=== PATIENT | female | born 1985 | race African-American/Black ===

== ENCOUNTER 2021-02-22 16:54 | Outpatient (CLI) | payer MEDICAID, SELFPAY ==
--- NOTE | ~2021-02-22 | US_ITS ---
EXAMINATION: US OB limited DATE: 02/22/2021 18:30 INDICATION: Patient with second trimester dichorionic, diamniotic and recent demise o f one twin presents with abnormal discharge TECHNIQUE: Real-time ultrasound of the pelvis was performed. The interpreting radiologist was not pre sent for the study. COMPARISON: None. FINDINGS: There is a dichorionic, diamniotic twin . As noted in the clinical history, demise of one twin. The surviving twin is in transverse lie. The placenta is posterior. cardiac activity and movement are noted in the surviving fetus. heart rate is 147 beats per dawit te (bpm). The amniotic fluid index is subjectively normal. The cervical length is 3.4 cm. No definite cervical funneling is identified. There are nabothian cysts of the cervix. There is debris in the am niotic sac of the twin. IMPRESSION: 1. Dichorionic, diamniotic with demise of one twin and surviving twin in transverse l ie. No definite cause for discharge identified. Reviewed, dictated and finalized at location A. OPRACTIC TEACHER IMPRESSION: 1. Dichorionic, diamniotic with demise of one twin and survivin g twin in transverse lie. No definite cause for discharge identified.
[2021-02-22 17:25] VITALS: BP 113/62; PULSE 88
[2021-02-22 17:49] LABS: Basophils Percent Auto 0.1 % (0.2-1.2); Eosinophils Percent Auto 0.1 % (0-4.4); Hematocrit 23.9 % (37.0-47.0); Hemoglobin 7.9 g/dL (12.0-15.0); Immature Granulocyte Absolute 0.03 K/mm3 (0.00-0.031); Immature Granulocyte Percent A 0.4 % (0-0.5); Lymphocytes Absolute Auto 1.49 K/mm3 (0.9-3.2); Lymphocytes Percent Auto 21.9 % (18.3-44.2); Mean Corpuscular HGB Conc 33.1 g/dl (32-36); Mean Corpuscular Hemoglobin 28.3 pg (26-34); Mean Corpuscular Volume 85.7 fl (80-100); Mean Platelet Volume 9.2 fl (7.4-10.4); Monocytes Absolute Auto 0.7 K/mm3 (0.1-0.6); Monocytes Percent Auto 9.9 % (2.6-8.5); Neutrophils Absolute Auto 4.6 K/mm3 (1.3-6.7); Neutrophils Percent Auto 67.6 % (45.5-73.1); Platelet Count Result 241 k/mm3 (150-375); Red Blood Count 2.79 M/mm3 (4.2-5.4); Red Cell Distribution Width 13.8 % (11.5-14.5); White Blood Count 6.8 K/mm3 (4.5-10.0)
[2021-02-22 18:04] LABS: INR 1.1; Prothrombin Time 13.8 Seconds (11.1-14.7)
[2021-02-22 18:05] LABS: Partial Thromboplastin Time 28.3 SECONDS (22.3-36.8)
[2021-02-22 18:11] LABS: Fibrinogen 279 mg/dl (215-510)
== END 2021-02-22 19:35 | disposition home or self-care (01) ==
LOC: ANHOBOP 17:04 → ANHOBPP 17:09
PROVIDERS: Obstetrics & Gynecology; Visit Provider Obstetrics & Gynecology
DX: O42.90 Premature rupture of membranes, unspecified as to length of time between rupture and onset of labor, unspecified weeks of gestation (principal); Z3A.00 Weeks of gestation of pregnancy not specified
CPT/HCPCS: 36415; 76815; 84112; 85025; 85384; 85610; 85730; 99199

== ENCOUNTER 2021-02-23 21:51 | Observation (INO) | payer MEDICAID, SELFPAY ==
[2021-02-23 22:23] VITALS: BP 115/64; PULSE 86
[2021-02-23 22:30] VITALS: BMI 32.0
[2021-02-23] MEDS: LACTATED RINGERS 1,000 ML 500 ML (22:30)
[2021-02-23 22:31] VITALS: BP 108/64; PULSE 81
[2021-02-23 22:53] LABS: Hematocrit 26.4 % (37.0-47.0); Hemoglobin 8.8 g/dL (12.0-15.0); Mean Corpuscular HGB Conc 33.3 g/dl (32-36); Mean Corpuscular Hemoglobin 28.7 pg (26-34); Mean Platelet Volume 9.3 fl (7.4-10.4); Platelet Count Result 244 k/mm3 (150-375); Red Blood Count 3.07 M/mm3 (4.2-5.4); Red Cell Distribution Width 13.7 % (11.5-14.5); White Blood Count 7.6 K/mm3 (4.5-10.0)
[2021-02-23 23:06] LABS: INR 1.1; Prothrombin Time 13.6 Seconds (11.1-14.7)
[2021-02-23 23:07] LABS: Partial Thromboplastin Time 32.1 SECONDS (22.3-36.8)
[2021-02-23 23:18] LABS: Fibrinogen 360 mg/dl (215-510)
[2021-02-23 23:38] VITALS: BP 114/64; PULSE 84
[2021-02-23 23:46] VITALS: BP 111/82; PULSE 73
--- NOTE | 2021-02-23 23:56 | PM.IMHP ---
H&P: HPI History of Present Illness Date/Time: 02/23/21 23:56 Vaishnavi is a 35yo @ 21.3wks with di-di twins (demise of twin A on 01/31/21) who presented to L&D with cramping pain, significant vaginal pressure, and bleeding since 183. On speculum exam, she was found to be 4cm dilated with bulging membranes. She then had rupture of membranes with dark color fluid noted. Shortly after, a forebag was palpated and she was completely dilated. Bedside US confirmed that twin A was the presenting twin; twin b was active, with normal heartbeat and subjectively normal fluid. She denies any fevers, nausea, vomiting, BANUELOS, vision changes, CP, SOB, palpitations. Twin B is active. She has seen MFM at [facility]. Her has been complicated by: - AMA - Di-di twin - Twin A with multiple anomlies and subsequent demise noted on MFM US on 01/31/21 - Lupus with h/o lupus nephritis - Connective tissue disorder Chief Complaint: pain, bleeding Review of Systems Review of Systems: All systems reviewed & are unremarkable except as noted in HPI and below (HPI) Meds Home Medications and Allergies Home Medications Medication Instructions Recorded Confirmed Type PNV cmb#95-ferrous fumarate-FA 1 tablet PO DAILY 02/22/21 02/22/21 History [] aspirin [Baby Aspirin] 81 mg PO DAILY 02/22/21 02/22/21 History ferrous sulfate [Iron (ferrous 325 mg PO DAILY 02/22/21 02/22/21 History sulfate)] hydroxychloroquine 1 mg PO DAILY 02/22/21 02/22/21 History metronidazole [Metrogel Vaginal] 1 appful VAGINAL DAILY 5 Days #5 g 02/22/21 Rx Allergies Allergy/AdvReac Type Severity Reaction Status Date / Time No Known Allergies Allergy Unknown Unverified 09/07/08 10:17 Vital Signs Vital Signs - 24 hr 02/23/21 22:23 02/23/21 22:31 02/23/21 23:38 Pulse Rate 86 81 84 Blood Pressure 115/64 108/64 114/64 02/23/21 23:46 Pulse Rate 73 Blood Pressure 111/82 Exam Const: General: cooperative, healthy appearing, comfortable and no acute distress Resp: Effort & Inspection: normal respiratory effort Cardio: Rate: regular rate GI: Inspection: normal to inspection and non-distended GI Palp: No abdominal tenderness and Yes Soft to palpation : Other: Twin A w/ + FHT's in 150's fundus soft; non-tender Cervix: speculum, 4cm; dark fluid noted digital exam: bulging bag; completely dilated Skin: General skin exam: normal color Neuro: General: patient oriented x3 Extrem: General: normal to inspection Psych: Appearance: grossly normal Affect: normal affect Attitude: cooperative H&P: Results Labs Labs: Short CBC 02/23/21 Range/Units 22:46 WBC 7.6 (4.5-10.0) K/mm3 Hgb 8.8 L (12.0-15.0) g/dL Hct 26.4 L (37.0-47.0) % Plt Count 244 (150-375) k/mm3 Assessment and Plan Assessment and plan (1) Dichorionic diamniotic twin : Qualifiers: Trimester: second trimester Qualified Code(s): O30.042 - Twin , dichorionic/diamniotic, second trimester Code(s): O30.049 - Twin , dichorionic/diamniotic, unspecified trimester Status: Acute (2) IUFD at less than 20 weeks of gestation: Code(s): O02.1 - Missed Status: Acute Additional Plan - Admitted to L&D [facility] territory sales consultant doctor was contacted; due to imminent delivery plan for delivery at [place] - No signs of infection; afebrile, normotensive, normal heart rate; non-tender abdomen, normal WBC - Plan for spontaneous delivery of ; no augmentation, betamethasone, or magnesium indicated - Plan for transfer to [facility] once deemed clinically stable; likely for inpatient admission until delivery of twin B
--- NOTE | 2021-02-24 | WPDHPUPDATE1 ---
History and Physical Update Update Date/Time: 02/24/21 23:57 History and Physical has been reviewed, including an updated exam of the patient. There are NO changes in the patient's condition. Risks, benefits, and alternatives have been discussed and questions answered. Patient agrees to proceed with procedure.
[2021-02-24 00:01] VITALS: BP 111/61; PULSE 77
[2021-02-24 00:16] VITALS: BP 110/59; PULSE 76
--- NOTE | 2021-02-24 00:17 | PM.OBPRVD ---
OB - Delivery Note Procedure Delivery date: 02/23/21 Intrapartal events: Other (di-di twin ; demise of twin A; labor) Laceration Description: None Quantitative Blood Loss (ml): 100 Anesthesia type: None Disposition: other (monitor on L&D until transferred to [place]) [place] Baby Date of : 02/23/21 Time of : 23:29 Weeks of gestation at delivery: 21 Infant gender: Female presentation: vertex score one minute: 0 score five minutes: 0 Narrative: Vaishnavi was found to be completely dilated and continued to have strong cramps. She pushed twice and delivered the en caul. She immediately felt better and denied any pain. Minimal bleeding was noted. The cervix was found to have decreased to 2cm dilated. She passed 1 small clot that appeared to have placenta tissue, however, no obvious placental tissue was delivered. Due to the very short cord noted on ultrasound no umbilical cord was palpated. The delivered, demised infant was examined and the liver and bowel were noted to be outside of the amniotic sac. There were also multiple skeletal defects. Twin B heart tones were monitored during this process and were within normal limits. Vaishnavi and her desired to hold the infant after the patient was cleaned. Sponge, lap, and instrument counts were correct at the end the procedure.
[2021-02-24 00:32] VITALS: BP 106/60; PULSE 80
[2021-02-24 00:46] VITALS: BP 116/65; PULSE 87
[2021-02-24 01:01] VITALS: BP 118/67; PULSE 80
[2021-02-24 01:16] VITALS: BP 106/90; PULSE 124
[2021-02-24 10:10] LABS: Rapid Plasma Reagin Non-Reactive (NonReactive)
--- NOTE | 2021-03-02 13:56 | PM.TDS ---
Transfer Discharge Sum: Prov Provider Date of admission: 02/23/21 21:51 Primary care physician: Jamilah Gaytan, DELIVERY SALES WORKER Admitting clinician: Lynn Hernandez MD Attending physician on admission: Lynn Hernandez Consults: Matthew/Laith [facility] maternal transport team Attending physician on discharge: Lynn Hernandez Discharging clinician: Lynn Hernandez Anticipated date of transfer: 02/24/21 Receiving physician/facility: La[facility] DS: Admitting Diagnosis Discharge Date 02/24/21 Admitting Diagnosis labor di-di twin demies of twin A DS: Discharge Diagnosis Discharge Diagnosis (1) IUFD at less than 20 weeks of gestation: Code(s): O02.1 - Missed Status: Acute (2) Dichorionic diamniotic twin : Qualifiers: Trimester: second trimester Qualified Code(s): O30.042 - Twin , dichorionic/diamniotic, second trimester Code(s): O30.049 - Twin , dichorionic/diamniotic, unspecified trimester Status: Acute (3) Vaginal delivery: Code(s): O80 - Encounter for full-term uncomplicated delivery Status: Acute Transfer Discharge Sum: Med Medications Active and Home Medications: Home Medications PNV cmb#95-ferrous fumarate-FA [] 1 tablet PO DAILY 02/22/21 [History Confirmed 02/22/21] aspirin 81 mg PO DAILY 02/22/21 [History Confirmed 02/22/21] ferrous sulfate [Iron (ferrous sulfate)] 325 mg PO DAILY 02/22/21 [History Confirmed 02/22/21] hydroxychloroquine 1 mg PO DAILY 02/22/21 [History Confirmed 02/22/21] metronidazole [Metrogel Vaginal] 1 appful VAGINAL DAILY 5 Days #5 g 02/22/21 [Rx] Transfer Discharge Sum: Hosp Hospital Course Hospital course: Vaishnavi Salazar is a 35 year old @ 21.3wks with di-di twins (demise of twin A on 01/31/21) who presented to L&D with cramping pain, significant vaginal pressure, and bleeding since 1829. On speculum exam, she was found to be 4cm dilated with bulging membranes. She then had rupture of membranes with dark color fluid noted. Shortly after, a forebag was palpated and she was completely dilated. Bedside US confirmed that twin A was the presenting twin; twin b was active, with normal heartbeat and subjectively normal fluid. She denied any fevers, nausea, vomiting, BANUELOS, vision changes, CP, SOB, palpitations. She has seen MFM at [facility], therefore the MFM parking control officer was contacted who stated that antibiotics, magnesium and steroids were not indicated due to prematurity. They desired her to deliver twin A, then be transported for [facility] for inpatient stay if Twin B survived/did not deliver. She subsequently delivered Twin A without issues (multiple anomalies were noted). Minimal bleeding. Twin B was noted to have normal heart tones and cervix decreased to 2cm. MFM maternal transport team at [facility] was once again contacted and desired to have patient transferred to [facility] for inpatient monitoring/care. Time Spent with Patient Time attestation: Total time spent providing and/or coordinating transfer services: Exam Const: General: cooperative, healthy appearing, comfortable and no acute distress Resp: Effort & Inspection: normal respiratory effort Cardio: Rate: regular rate GI: GI Palp: No abdominal tenderness and Yes Soft to palpation : Other: Twin B: normal heart tones TOCO: no contractions Cervix: 2cm/thick/high No vaginal bleeding or leakage of fluid Skin: General skin exam: normal color Neuro: General: patient oriented x3 Extrem: General: normal to inspection Psych: Appearance: grossly normal Affect: normal affect Attitude: cooperative DS: Data Data Completed and Pending Completed studies during hospitalization: Pending at discharge 02/24/21 02:44 Surgical [PTH] Routine
== END 2021-02-24 01:41 | disposition short-term general hospital (02) ==
PROVIDERS: Admitting Provider Obstetrics & Gynecology; PCP Nurse Practitioner Family; Visit Provider Obstetrics & Gynecology
DX: O02.1 Missed abortion (principal); O30.042 Twin pregnancy, dichorionic/diamniotic, second trimester; Z3A.21 21 weeks gestation of pregnancy; M32.9 Systemic lupus erythematosus, unspecified; M35.9 Systemic involvement of connective tissue, unspecified
CPT/HCPCS: 59821; 36415; 85027; 85384; 85610; 85730; 86592; 86850; 86900; 86901; 88305; 88307; G0378; G0379; J7120

== ENCOUNTER 2024-07-19 15:23 | Outpatient (CLI) | payer OTHER, SELFPAY ==
--- NOTE | ~2024-07-19 | MM_ITS ---
EXAMINATION: MM screening imelda BI w cesario HISTORY: Screening TECHNIQUE: Craniocaudal and mediolateral oblique 3-D tomosynthesis images were obtained and synthetic 2-D images were generated. CAD analysis was submitted and interpreted. COMPARISON: No prior mammogram is available for comparison at this institution. BREAST PARENCHYMAL COMPOSITION: Not dense: There are scattered areas of fibroglandular density. FINDINGS: There is no evidence of suspicious mass, calcification, or architectural distortion to sugg est malignancy in either breast. There has been no suspicious interval change. IMPRESSION: 1. No mammographic evidence of malignancy. 2. Recommend routine screening mammography in one year. BI-RADS Category 1: Negative Reviewed, dictated and finalized at location A.
== END 2024-07-19 15:24 | disposition home or self-care (01) ==
LOC: MICIMG 15:24
PROVIDERS: PCP Obstetrics & Gynecology; Visit Provider Obstetrics & Gynecology
DX: Z12.31 Encounter for screening mammogram for malignant neoplasm of breast (principal)
CPT/HCPCS: 77063; 77067